=== PATIENT | female | born 1990 | race Caucasian/White ===

== ENCOUNTER 2024-10-05 15:57 | Emergency (ER) | payer OTHER ==
[~2024-10-05] VITALS: Ht 157.5 cm; Wt 61.0 kg
[2024-10-05 16:15] VITALS: O2SAT 98
[2024-10-05] MEDS: IBUPROFEN 600MG TABLET PO ONE (18:35)
[2024-10-05] MEDS: ACETAMINOPHEN 325MG TABLET PO ONE (18:37)
[2024-10-05] MEDS: BACITRACIN ZINC OINT UDPKT TOP ONE (18:38)
[2024-10-05] MEDS ORDERED: CEPH500C2 MT (18:41)
[2024-10-05] MEDS ORDERED: SILV50CR31 TP (18:41)
[2024-10-05] MEDS ORDERED: TOPUD MT (18:41)
[2024-10-05] MEDS: TETANUS, DIPHTHERIA, PERTUSSIS VAC/PF 0.5ML (>10YR OLD) IM ONE (18:46)
[2024-10-05 19:54] VITALS: BP 124/80; PULSE 69; RESP 18; TEMP 37.2; O2SAT 98
== END 2024-10-05 19:55 | disposition home or self-care (01) ==
LOC: ER 15:57
DX: T23.161A Burn of first degree of back of right hand, initial encounter (principal); Z88.6 Allergy status to analgesic agent; Z90.49 Acquired absence of other specified parts of digestive tract; X08.8XXA Exposure to other specified smoke, fire and flames, initial encounter; Y93.89 Activity, other specified; Y92.89 Other specified places as the place of occurrence of the external cause; Y99.8 Other external cause status
CPT/HCPCS: 81025; 90471; 90715; 99283

== ENCOUNTER 2024-10-27 09:43 | Emergency (ER) | payer MEDICAID, OTHER ==
[~2024-10-27] VITALS: Ht 152.4 cm; Wt 63.6 kg
[~2024-10-27 09:43] MED LIST: CEPH500C2 MT; SILV50CR31 TP; TOPUD MT
[2024-10-27 09:49] VITALS: BP 124/70; TEMP 36.8; O2SAT 100
[2024-10-27 09:53] VITALS: PULSE 110; RESP 18; O2SAT 100
[2024-10-27] MEDS ORDERED: TRIA15CR61 TP (10:52)
[2024-10-27] MEDS: DEXAMETHASONE 4MG TABLET PO ONE (11:24)
== END 2024-10-27 11:35 | disposition home or self-care (01) ==
LOC: ER 09:43
DX: L20.9 Atopic dermatitis, unspecified (principal); Z90.49 Acquired absence of other specified parts of digestive tract; Z79.899 Other long term (current) drug therapy; Z88.6 Allergy status to analgesic agent
CPT/HCPCS: 99283; J8540